=== PATIENT | female | born 1985 | race African-American/Black ===

== ENCOUNTER 2016-09-24 07:54 | Emergency (ER) | payer OTHER ==
[~2016-09-24 07:54] MED LIST: FAMOTIDINE PO; VICODIN 5/1 TAB 5/50 PO
== END 2016-09-24 08:35 | disposition home or self-care (01) ==
LOC: CED 07:54
DX: M54.41 Lumbago with sciatica, right side (principal); J45.909 Unspecified asthma, uncomplicated; F17.210 Nicotine dependence, cigarettes, uncomplicated; Z98.51 Tubal ligation status
CPT/HCPCS: 99283